=== PATIENT | female | born 1985 | race Caucasian/White ===

== ENCOUNTER 2017-03-30 06:13 | Emergency (ER) | END 2017-03-30 09:23 | disposition home or self-care (01) ==

== ENCOUNTER 2018-04-11 09:15 | Outpatient (CLI) | payer MEDICAID ==
[~2018-04-11] VITALS: Ht 165.1 cm; Wt 112.3 kg
[~2018-04-11 09:15] MED LIST: CALC600T24 PO; FER325 PO; PREN-93 PO
[2018-04-11 09:30] VITALS: Ht 165.1 cm; Wt 112.3 kg
[2018-04-11 09:31] VITALS: BP 110/68; PULSE 94
--- NOTE | 2018-04-11 11:31 | TRIAGE ---
OB Triage Datetime Report Generated by CPN: 04/11/2018 11:31 Datetime: 04/11/2018 11:04 Stage of : OB Triage Datetime: 04/11/2018 10:43 Stage of : OB Triage Datetime: 04/11/2018 10:38 Stage of : OB Triage Datetime: 04/11/2018 10:28 Labor Evaluation Frequency: x1 Monitor Mode: External Duration (sec)2399: 50 Pattern: Normal: <= 5 Contractions in 10 Minutes Resting Tone [place]: Relaxed Heart Rate FHR Baseline Rate: 130 Monitor Mode: External US Variability: Moderate 6-25 bpm Accelerations: 10X10 Decelerations: None Category: Category I Pain Assessment Pain Scale: 0 Pain Presence: None/Denies Pain Type: N/A Pain Goal: 3 Pain Relief Measures: Comfort Measures Datetime: 04/11/2018 09:40 Stage of : OB Triage Datetime: 04/11/2018 09:29 Labor Evaluation Frequency: x1 Monitor Mode: External Duration (sec)2399: 50 Pattern: Normal: <= 5 Contractions in 10 Minutes Resting Tone [place]: Relaxed Heart Rate FHR Baseline Rate: 145 Monitor Mode: External US Variability: Moderate 6-25 bpm Accelerations: 10X10 Decelerations: None Category: Category I Pain Assessment Pain Scale: 0 Pain Presence: None/Denies Pain Type: N/A Pain Goal: 3 Pain Relief Measures: Comfort Measures Datetime: 04/11/2018 09:27 Stage of : OB Triage Assessment Type: Triage Maternal Assessment Level of Consciousness: Fully Conscious DTR's/Clonus: DTRs 2+; No Clonus Headache: Denies Blurred Vision: No Respiratory Effort: Unlabored; Regular Rhythm; Equal Expansion Breath Sounds, Left: Clear and Equal Breath Sounds, Right: Clear and Equal Nausea/Vomiting: Denies RUQ Epigastric Pain: Denies Facial Edema: None Temperature Route: Axillary Fall Risk Assessment History of Falling: (0) No Secondary Diagnosis: (0) No Ambulatory Aid: (0) Bedrest/Nurse Assist IV Therapy: (0) No Gait: (0) Normal/Bedrest/Immobile Mental Status: (0) Oriented to Own Ability Fall Score: 0 Fall Risk Score Definition: No Risk: No action required Labor Evaluation Frequency: 0 Monitor Mode: External Pattern: Normal: <= 5 Contractions in 10 Minutes Resting Tone [place]: Relaxed Heart Rate FHR Baseline Rate: APPLIED Monitor Mode: External US Pain Assessment Pain Scale: 0 Pain Presence: None/Denies Pain Type: N/A Pain Goal: 3 Pain Relief Measures: Comfort Measures Datetime: 04/11/2018 09:26 Time of Arrival: 04/11/2018 09:15 EGA: 38.1 Arrived By: Ambulatory Arrived From: Home Chief Complaint: INSTRUCTED BY OFFICE TO RETURN TODAY AND CHECK SIZE/DATES, DENIES LEAKING, BLEEDI NG OR UC'S Movement: Present Contractions: Denies/Absent Rupture of Membranes: Denies Vaginal Bleeding: None Vaginal Discharge: Denies Recent Sexual Intercouse: Denies Abdominal Trauma: Not Applicable Patient Complaints: None Time Provider Notified: 04/11/2018 09:40 Provider Notified: hadadian Initial Plan: MONITOR, VE, BPP, EFW Datetime: 04/04/2018 11:21 Stage of : OB Triage Maternal Assessment Level of Consciousness: Fully Conscious Labor Evaluation Frequency: NONE Monitor Mode: External Resting Tone [place]: Relaxed Heart Rate FHR Baseline Rate: 135 Monitor Mode: External US Variability: Moderate 6-25 bpm Accelerations: 15X15 Decelerations: None Category: Category I Pain Assessment Pain Scale: 0 Pain Goal: 3 Vaginal Exam Membrane Status: Intact Vaginal Bleeding: None Datetime: 04/04/2018 10:47 Monitor Mode: External Monitor Mode: External US Datetime: 04/04/2018 10:39 Assessment Type: Triage Maternal Assessment Level of Consciousness: Fully Conscious DTR's/Clonus: DTRs 2+; No Clonus Headache: Denies Blurred Vision: No Respiratory Effort: Unlabored; Regular Rhythm; Equal Expansion Breath Sounds, Left: Clear and Equal Breath Sounds, Right: Clear and Equal Nausea/Vomiting: Denies RUQ Epigastric Pain: Denies Lower Extremities Edema: None Degree: None Upper Extremities Edema: None Degree: None Facial Edema: None Fall Risk Assessment History of Falling: (0) No Secondary Diagnosis: (0) No Ambulatory Aid: (0) Bedrest/Nurse Assist IV Therapy: (0) No Gait: (0) Normal/Bedrest/Immobile Mental Status: (0) Oriented to Own Ability Fall Score: 0 Fall Risk Score Definition: No Risk: No action required Datetime: 04/04/2018 10:38 Time of Arrival: 04/04/2018 10:11 EGA: 37.1 Arrived By: Ambulatory Chief Complaint: PT. HERE FOR NST/NANDA FOR OBESITY Movement: Present Contractions: Denies/Absent Rupture of Membranes: Denies Vaginal Bleeding: None Vaginal Discharge: Denies Recent Sexual Intercouse: Denies Abdominal Trauma: Not Applicable Patient Complaints: None Time Provider Notified: 04/04/2018 11:00 Provider Notified: HADADIAN Initial Plan: NST/BPP Datetime: 03/28/2018 14:16 Fall Score: 0 Fall Risk Score Definition: No Risk: No action required Datetime: 03/28/2018 14:15 EGA: 36.1
--- NOTE | 2018-04-11 15:38 | PN ---
Triage Information Date/Time Reason for visit: Sent from clinic for antepartum testing Weeks of Gestation 38 1/7 wks /Para Hypertention: none Objective Vital Signs Date Temp Pulse Resp B/P (MAP) Pulse Ox O2 O2 Flow FiO2 Time Delivery Rate 04/11/18 97.9 94 110/68 09:31 (82) Heart Rate: 140's Contractions: >10 Minutes Apart Disposition: Discharge Assessment/Plan 24 years old 3 para 2001 at 38 weeks and 1 daily sent from clinic for antepartum testing on the ultrasound for EFW.She states good movement. She denies nausea, vomiting, shortness of breath, chest pain, headache, visual changes, vaginal bleeding or LOF. - FHR: No sign of metabolic acidosis- Category I - She has occasional uterine contractions - SVE: close/thick/high/cephalic -Ultrasound performed, NANDA 10.8. EFW 3730 g. Biophysical profile 8 out of 8 - Symptoms and sign of labor, preeclampsia, kick count discussed with patient, she voiced understanding. All of her questions answered. - Patient was discharged home in stable condition with the appropriate discharge instructions provided. I would like patient to have close follow-up with her primary physician or outpatient clinic in 1-2 days or return to triage for worsening symptoms or any other urgent concerns. LUIS FALCON Apr 11, 2018 15:37
== END 2018-04-11 11:20 | disposition home or self-care (01) ==
LOC: OBT 09:15 → L-D 09:15 → OBT 11:20
PROVIDERS: ATTEND Obstetrics & Gynecology
DX: O62.9 Abnormality of forces of labor, unspecified (principal); Z3A.38 38 weeks gestation of pregnancy
CPT/HCPCS: 76815; 76818; Z7500; G0463

== ENCOUNTER 2018-04-26 01:39 | Inpatient (IN) | payer MEDICAID ==
[~2018-04-26] VITALS: Ht 165.1 cm; Wt 113.4 kg
[2018-04-26] MEDS ORDERED: LACTATED RINGER'S 1,000 ML IV SCH (01:57)
[2018-04-26 01:59] VITALS: BP 130/79; PULSE 75; RESP 18; Ht 165.1 cm; Wt 113.4 kg
[2018-04-26] MEDS ORDERED: CARBOPROST 250 MCG INJ IM PRN ×2 (02:00→09:00)
[2018-04-26] MEDS ORDERED: LIDOCAINE 1% (MPF) 30 ML INJ INJ PRN (02:00)
[2018-04-26] MEDS ORDERED: BUTORPHANOL 2 MG INJ IV PRN (02:00)
[2018-04-26] MEDS ORDERED: MISOPROSTOL 200 MCG TAB PR PRN ×2 (02:00→09:00)
[2018-04-26] MEDS ORDERED: METHYLERGONOVINE 0.2 MG INJ IM PRN (02:00)
[2018-04-26] MEDS ORDERED: OXYTOCIN 30 UNITS/LR 500 ML IV SCH ×3 (02:00→08:51)
[2018-04-26] MEDS ORDERED: IBUPROFEN 600 MG TAB PO PRN (02:00)
[2018-04-26] MEDS ORDERED: OXYTOCIN 30 UNITS/LR 500 ML IV PRN ×2 (02:00→09:00)
--- NOTE | 2018-04-26 02:03 | TRIAGE ---
OB Triage Datetime Report Generated by CPN: 04/26/2018 02:03 Datetime: 04/26/2018 02:02 Assessment Type: Admission Assessment Vaginal Bleeding: None Maternal Assessment Level of Consciousness: Fully Conscious DTR's/Clonus: DTRs 2+; No Clonus Headache: Denies Blurred Vision: No Respiratory Effort: Unlabored; Regular Rhythm; Equal Expansion Breath Sounds, Left: Clear and Equal Breath Sounds, Right: Clear and Equal Nausea/Vomiting: Denies RUQ Epigastric Pain: Denies Facial Edema: None Fall Risk Assessment History of Falling: (0) No Secondary Diagnosis: (0) No Ambulatory Aid: (0) Bedrest/Nurse Assist Gait: (0) Normal/Bedrest/Immobile Mental Status: (0) Oriented to Own Ability Datetime: 04/26/2018 02:01 Time of Arrival: 04/26/2018 01:35 EGA: 40.2 Arrived By: Stretcher Arrived From: Home Chief Complaint: UC's since 2299 Movement: Present Contractions: Regular Time Contractions Began: 04/25/2018 23:00 Contractions: Every 4 min Rupture of Membranes: Unsure Vaginal Bleeding: None Vaginal Discharge: Denies Recent Sexual Intercouse: Denies Abdominal Trauma: Not Applicable Patient Complaints: Contractions Additional Patient Complaints: Leaking x2 episodes Time Provider Notified: 04/26/2018 01:50 Provider Notified: Dr. Posadas Initial Plan: CEFM, VE Datetime: 04/26/2018 01:49 Stage of : OB Triage Assessment Type: Triage Maternal Assessment Level of Consciousness: Fully Conscious DTR's/Clonus: DTRs 2+; No Clonus Headache: Denies Blurred Vision: No Respiratory Effort: Unlabored; Regular Rhythm; Equal Expansion Breath Sounds, Left: Clear and Equal Breath Sounds, Right: Clear and Equal Nausea/Vomiting: Denies RUQ Epigastric Pain: Denies Facial Edema: None Temperature Route: Oral Fall Risk Assessment History of Falling: (0) No Secondary Diagnosis: (0) No Ambulatory Aid: (0) Bedrest/Nurse Assist IV Therapy: (0) No Gait: (0) Normal/Bedrest/Immobile Mental Status: (0) Oriented to Own Ability Fall Score: 0 Fall Risk Score Definition: No Risk: No action required Pain Assessment Pain Scale: 10 Pain Presence: Intermittent Pain Type: Cramping Pain Location: Abdomen Datetime: 04/11/2018 09:27 Fall Score: 0 Fall Risk Score Definition: No Risk: No action required Datetime: 04/11/2018 09:26 EGA: 38.1 Datetime: 04/04/2018 10:39 Fall Score: 0 Fall Risk Score Definition: No Risk: No action required Datetime: 04/04/2018 10:38 EGA: 37.1 Datetime: 03/28/2018 14:16 Fall Score: 0 Fall Risk Score Definition: No Risk: No action required Datetime: 03/28/2018 14:15 EGA: 36.1
[2018-04-26] MEDS ORDERED: FENTAnyl 2MCG/ML-ROPIV 0.2% 100 ML ONE (02:14)
[2018-04-26] MEDS ORDERED: CEFAZOLIN 2 GM/50 ML (PMX) 50 ML IVPB ONE ×2 (02:16→02:23)
--- NOTE | 2018-04-26 02:46 | PREAC ---
Date/Time of Note Date/Time of Note DATE: 04/26/18 TIME: 02:44 Anesthesia Eval and Record Evaluation Time Pre-Procedure Interview DATE: 04/26/18 TIME: 02:44 Age 32 Sex female NPO: 8 hrs Preoperative diagnosis IUP Planned procedure L&D Epidural Past Medical History Past Medical History: Includes GI: Morbid obesity Surgery & Anesthesia Issues No known issue Meds Anticoagulation: No Beta Josseline within 24 hr: No Reason Beta Josseline not given: Pt. not on B-Josseline Reported Medications Ferrous Sulfate* (Ferrous Sulfate*) 325 Mg Tabec, 325 MG PO DAILY, TAB 04/04/18 Calcium Carbonate* (Calcium Carbonate*) 600 MG Ca Tab, 600 MG PO DAILY, TAB 04/04/18 Vit No.124/Iron/FA ( Vitamin Tablet) 1 Each Tablet, 1 EACH PO DAILY, TAB 04/04/18 Current Medications Lactated Ringer's 1,000 ml @ 125 mls/hr Q8H IV Last administered on 04/26/18at 02:12; Admin Dose 125 MLS/HR; Start 04/26/18 at 01:57 Butorphanol Tartrate (Stadol) 2 mg Q2H PRN IV .PAIN; Start 04/26/18 at 02:00 Lidocaine (Xylocaine 1% (Mpf)) 30 ml ONCE PRN INJ .EPISIOTOMY; Start 04/26/18 at 02:00 Oxytocin/Lactated Ringer's 500 ml @ 500 mls/hr ONCE POST IV ; Start 04/26/18 at 02:00 Oxytocin/Lactated Ringer's 500 ml @ 125 mls/hr POST IV ; Start 04/26/18 at 02:00 Ibuprofen (Motrin) 600 mg ONCE PRN PO .PAIN 1-5; Start 04/26/18 at 02:00 Oxytocin/Lactated Ringer's 500 ml @ 0 mls/hr ONCE PRN IV .VAGINAL BLEEDING; Start 04/26/18 at 02:00 Methylergonovine Maleate (Methergine) 0.2 mg ONCE PRN IM .VAGINAL BLEEDING; Start 04/26/18 at 02:00 Carboprost Tromethamine (Hemabate) 250 mcg ONCE PRN IM .VAGINAL BLEEDING; Start 04/26/18 at 02:00 Misoprostol (Cytotec) 1,000 mcg ONCE PRN MA .VAGINAL BLEEDING; Start 04/26/18 at 02:00 Cefazolin Sodium/ Dextrose 50 ml @ 100 mls/hr ONCE ONCE IVPB Last administered on 04/26/18at 02:25; Admin Dose 100 MLS/HR; Start 04/26/18 at 02:16; Stop 04/26/18 at 02:45 Meds reviewed: Yes Allergies Coded Allergies: Latex, Natural Rubber (Verified Allergy, Intermediate, RASH, 04/04/18) amoxicillin (Verified Allergy, Unknown, 04/26/18) Allergies Reviewed: Yes Labs/Studies Labs Reviewed: Reviewed by anesthesiologist test: Positive Studies: ECG Pre-procedure Exam Last vitals Vital Signs Date Temp Pulse Resp B/P (MAP) Pulse Ox O2 O2 Flow FiO2 Time Delivery Rate 04/26/18 98.2 75 18 130/79 Room Air 01:59 (96) Airway: Adequate mouth opening, Adequate thyromental dist Mallampati: Mallampati II Teeth: Normal Lung: Normal Heart: Normal ASA Physical Status ASA physical status: 2 Emergency: None Planned Anesthetic Neuraxial: Epidural Planned Pain Management Epidural, Parenteral pain med Pre-operative Attestations Prior to commencing anesthesia and surgery, the patient was re-evaluated, there was verification of: *The patient's identity *The results of appropriate recent lab work and preoperative vital signs *The above evaluation not changing prior to induction *Anesthetic plan, risk benefits, alternative and complications discussed with patient/family; questions answered; patient/family understands, accepts and wishes to proceed. KARL FERNANDES MD Apr 26, 2018 02:46
--- NOTE | 2018-04-26 02:58 | HP ---
Date/Time of Note Date/Time of Note DATE: 04/26/18 TIME: 02:51 OB - History Hx of Present Free Text/Dictation 04/26/2018 Chief Complaint: labor pain and contractions Estimated Due Date: Apr 24, 2018 : 3 Para: 2 Spontaneous : 0 Therapeutic : 0 Other Concerns: 32 years old female with IUP at 40 weeks and 2 days presented with complaint of contractions and was noted to be in labor. Denies any leaking of fluid. Noted to be 9 cm/ 80/-1 . ROM at home at 23: 30 4 hours prior to come in. GBS postive No complications in her prental course. Reports alergy to amoxicillin, Rash. No sensitivity for GBS reported Past Family/Social History * Past Medical, Surgical, Family and Obstetric Histories reviewed from chart. Blood Type: B+ Rubella: immune RPR/VDRL: Negative GBS Status: Positive HBsAG: Negative OB Admission Exam Vital Signs Vital Signs Vital Signs Date Temp Pulse Resp B/P (MAP) Pulse Ox O2 O2 Flow FiO2 Time Delivery Rate 04/26/18 98.2 75 18 130/79 Room Air 01:59 (96) Physical Exam HEENT: WNL Lungs: Clear Abdomen: WNL Cervical Dilatation: 9cm Effacement: 100% Station: -1 Heart Rate: 140's Accelerations: No Accelerations Varibility: Moderate Contractions on Admission: < 5 Minutes Apart Intensity: Firm Last 72 hours Lab Results OB Assessment/Plan Other Assessment: IUP at 40 weeks and 2 days Active labor GBS positive Allergy to Amoxicillin, no sensitivity to clindamycin Consider Ancef 2 gram IV amnd then 1 gram every 8 hours. Slow infusion at start. Wach for any reaction. Denies any anaphylactic reaction to Amoxicillin, Anticipate Desires Epidural for pain control KALPESH KWON MD Apr 26, 2018 02:58
[2018-04-26] MEDS ORDERED: ONDANSETRON 4 MG INJ IV PRN ×2 (03:00→09:00)
[2018-04-26] MEDS ORDERED: NALOXONE (0.4 MG/ML) INJ IV PRN (03:00)
[2018-04-26] MEDS ORDERED: FENTAnyl 2MCG/ML-ROPIV 0.2% 100 ML BAG EPI SCH (03:00)
[2018-04-26] MEDS ORDERED: DIPHENHYDRAMINE 50 MG INJ IV PRN (03:00)
--- NOTE | 2018-04-26 08:50 | LDN ---
Date/Time of Note Date/Time of Note DATE: 04/26/18 TIME: 08:48 Delivery Summary April 26, 2018 Weeks of Gestation 40 weeks plus Placenta Delivered: Spontaneously Meconium: none Episiotomy: No Indication for episiotomy N;/A Perineal laceration: 0 Laceration repair: No laceration noted Anesthesia type: Epidural Estimated blood loss: 100 Sponge & Needle done & correct: Yes All needle counts correct: Yes Any foreign bodies felt in the: No Delivery Information Sex Infant Sex: female Apgars 1 Minute: 8 5 Minute: 9 Suctioning Nose & mouth suctioned at carl: Yes Delee suction performed: Yes Umbilical Cord Umbilical cord with: 3 Vessels Cord presentations: no nuchal cord Cord Blood was obtained: Yes Mother & Baby Disposition Disposition No perineal laceration noted. Baby's weight 8 pound 15 ounce. 100 cc EBL. Fundus was firm at the end of the delivery. No complication. KALPESH KWON MD Apr 26, 2018 08:50
[2018-04-26] MEDS ORDERED: HYDROCODONE/APAP (5/325) TAB PO PRN (09:00)
[2018-04-26] MEDS ORDERED: LANOLIN HPA 1 PKT TOP PRN (09:00)
[2018-04-26] MEDS ORDERED: DIPHENHYDRAMINE 25 MG CAP PO PRN (09:00)
[2018-04-26] MEDS ORDERED: WITCH HAZEL/GLYCERIN PAD PR PRN (09:00)
[2018-04-26] MEDS ORDERED: ZOLPIDEM 5 MG TAB PO PRN (09:00)
[2018-04-26] MEDS ORDERED: NACL 0.9% 3 ML SYG IV SCH (09:00)
[2018-04-26] MEDS: IBUPROFEN 600 MG TAB PO SCH ×3 (12:00→17:11)
[2018-04-26 15:00] VITALS: BP 105/59; PULSE 65; RESP 18
[2018-04-26] MEDS: SENNA/DOCUSATE NA (8.6MG/50MG) TAB PO SCH ×2 (16:22→22:38)
[2018-04-26] MEDS: FERROUS SULFATE (EC) 325 MG TAB PO SCH (16:23)
[2018-04-26 16:47] VITALS: BP 108/70; PULSE 62; RESP 18
[2018-04-26 20:00] VITALS: BP 101/60; PULSE 72; RESP 18
[2018-04-27 04:12] VITALS: BP_SYST 101; BP_SYST 110; BP_DIAS 60; BP_DIAS 62; PULSE 70; PULSE 72; RESP 18
[2018-04-27] MEDS: IBUPROFEN 600 MG TAB PO SCH ×5 (05:55→23:46)
[2018-04-27 08:40] VITALS: BP 100/54; PULSE 79; RESP 18
[2018-04-27] MEDS: FERROUS SULFATE (EC) 325 MG TAB PO SCH (10:00)
[2018-04-27] MEDS: SENNA/DOCUSATE NA (8.6MG/50MG) TAB PO SCH ×2 (10:00→21:00)
--- NOTE | 2018-04-27 11:31 | QN ---
Documentation Comment no c/o had BM fundus firm calf neg for tenderness lochia min A stable S/P P d/s home in am ADD baby might need photo therapy CARLINE FERMIN MD Apr 27, 2018 11:31
--- NOTE | 2018-04-27 12:59 | PAC ---
Date/Time of Note Date/Time of Note DATE: 04/27/18 TIME: 12:59 Post-Anesthesia Notes Post-Anesthesia Note Last documented vital signs Vital Signs Date Temp Pulse Resp B/P (MAP) Pulse Ox O2 O2 Flow FiO2 Time Delivery Rate 04/27/18 98.3 79 18 100/54 Room Air 08:40 (69) Activity: WNL Respiratory function: WNL Cardiovascular function: WNL Mental status: Baseline Pain reasonably controlled: Yes Hydration appropriate: Yes Nausea/Vomiting absent: Yes Comments BP:122/56, P:78, spo2:100%, T:98,8 KARL FERNANDES MD Apr 27, 2018 12:59
[2018-04-27 15:55] VITALS: BP 100/71; PULSE 72; RESP 18
[2018-04-27 19:50] VITALS: BP 111/67; PULSE 72; RESP 19
[2018-04-28 04:00] VITALS: BP 114/59; PULSE 63; RESP 19
[2018-04-28] MEDS: IBUPROFEN 600 MG TAB PO SCH (05:41)
[2018-04-28 07:45] VITALS: BP 115/79; PULSE 71; RESP 16
--- NOTE | 2018-04-28 08:43 | DS ---
Date/Time of Note Date/Time of Note DATE: 04/28/18 TIME: 08:41 Obstetrical Discharge Record Final Diagnosis Final Diagnosis: Term delivered Other Final Diagnosis 32 years old female s/p normal vaginal delivery at 40 weeks and 2 days. day#2. She is ambulating and tolerating regular diet. She is voiding without difficulty. She had bowel movement. Pain is controlled on current medication. She is doing breast-feeding. She is bonding well with . Contraceptive option with risk benefits alternatives discussed in detail with patient. She discharged home in stable condition with follow-up in 2 and 6 weeks. Vaginal Delivery Obstetrical Delivery: Spontaneous Condition on Discharge Physical Assessment Last Vitals: Vital Signs Date Temp Pulse Resp B/P (MAP) Pulse Ox O2 O2 Flow FiO2 Time Delivery Rate 04/28/18 98.4 63 19 114/59 Room Air 04:00 (77) Voiding: Yes Bowel Movement: Yes Breast: Soft, non-tender Fundus: Firm Calf Tenderness: No Patient Condition: Stable LUIS FALCON Apr 28, 2018 08:43
[2018-04-28] MEDS ORDERED: VARICELLA VACCINE LIVE/PF 1,350 UNIT/0.5 ML ML SC* ONE (09:00)
[2018-04-28] MEDS ORDERED: MEASLES,MUMPS,RUBELLA VACCINE INJ SC* ONE (09:00)
[2018-04-28] MEDS: FERROUS SULFATE (EC) 325 MG TAB PO SCH (09:47)
[2018-04-28] MEDS: SENNA/DOCUSATE NA (8.6MG/50MG) TAB PO SCH (09:47)
== END 2018-04-28 12:10 | disposition home or self-care (01) | DRG 807 ==
LOC: L-D 01:39 → OBT 01:39 → L-D 01:50 → OBT 01:50 → PP1 14:50
PROVIDERS: ADMIT Obstetrics & Gynecology; ATTEND Obstetrics & Gynecology
PROC: 10E0XZZ Delivery of Products of Conception, External Approach (ICD-10-PCS; principal; 2018-04-26)
DX: O99.214 Obesity complicating childbirth (principal); O99.824 Streptococcus B carrier state complicating childbirth; E66.01 Morbid (severe) obesity due to excess calories; Z37.0 Single live birth; Z3A.40 40 weeks gestation of pregnancy
CPT/HCPCS: 62319; 85025; 85610; 85730; 86592; 86850; 86900; 86901; 87340; 90716; G0463; J0690; J2590; J3010; J7120

== ENCOUNTER 2018-04-30 15:14 | Emergency (ER) | payer MEDICAID ==
[~2018-04-30] VITALS: Ht 172.7 cm; Wt 109.0 kg
[~2018-04-30 15:14] MED LIST changes: -CALC600T24 PO
[2018-04-30 15:42] VITALS: BP 144/84; PULSE 79; RESP 20; Ht 172.7 cm; Wt 109.0 kg
--- NOTE | 2018-04-30 20:12 | ERD ---
ER Documentation Chief Complaint Chief Complaint Complains of a cough x 3 days HPI 32-year-old female patient with no significant past medical history presents to ED complaining of having the fear of sleeping due to a choking sensation. Reports that she just delivered her baby, vaginally 5 days ago. Denies having any complications. No current vaginal bleeding. States that she feels like she is going to drown if she sleeps. Denies being depressed. Denies any suicidal or homicidal ideations. Denies any thoughts about hurting or killing her baby. Denies any nausea, vomiting, chest pain, shortness of breath, fever. ROS All systems reviewed and are negative except as per history of present illness. Medications Home Meds Reported Medications Ferrous Sulfate* (Ferrous Sulfate*) 325 Mg Tabec, 325 MG PO DAILY, TAB 04/04/18 Vit No.124/Iron/FA ( Vitamin Tablet) 1 Each Tablet, 1 EACH PO DAILY, TAB 04/04/18 Allergies Allergies: Coded Allergies: Latex, Natural Rubber (Verified Allergy, Intermediate, RASH, 04/04/18) amoxicillin (Verified Allergy, Unknown, 04/26/18) PMhx/Soc History of Surgery: No Anesthesia Reaction: No Hx Neurological Disorder: No Hx Respiratory Disorders: No Hx Cardiac Disorders: No Hx Psychiatric Problems: No Hx Miscellaneous Medical Probl: No Hx Alcohol Use: No Hx Substance Use: No Hx Tobacco Use: No FmHx Family History: No diabetes, No coronary disease Physical Exam Vitals Vital Signs Date Temp Pulse Resp B/P (MAP) Pulse Ox O2 O2 Flow FiO2 Time Delivery Rate 04/30/18 98.8 79 20 144/84 99 15:42 (104) Physical Exam Const: [id number], well-nourished. In no acute distress. Head: Atraumatic, normocephalic Eyes: Normal Conjunctiva without injection. No purulent discharge. PERRL. EOMI ENT: Normal external ear. Ear canal without erythema. Tympanic membrane pearly narvaez without effusion or bulging. Nasal canal clear with normal turbinates. Moist oropharynx without tonsillar exudates. Non-erythematous pharynx. Uvula midline. No drooling. No trismus. Neck: Full range of motion. No meningismus. No cervical lymphadenopathy. Resp: Clear to auscultation bilaterally. No wheezing, rhonchi, rales, or crackles. No accessory muscle use. No retractions. Cardio: Regular rate and rhythm. No murmurs, rubs or gallops. Abd: Soft, non tender, non distended. Normal bowel sounds. No palpable masses. No rebound tenderness. No guarding. Skin: No petechiae or rashes Back: No midline tenderness. No CVA tenderness. Ext: No cyanosis, or edema. Neur: Awake and alert. Psych: Normal Mood and Affect Procedures/MDM 32-year-old female patient with no significant past medical history presents to ED complaining of a choking sensation when she is lying down, having a fear of sleeping. Patient is afebrile and nontoxic-appearing. Discussed with my supervising physician, Dr. Ac, we both agreed with the management discharge plan. Patient should follow-up with her primary care physician or OB/vascular surgery physician for further management and treatment since patient is breast feeding, I did not feel comfortable with prescribing anti-anxiety medications at this time. Low suspicion for acute myocardial infarction, pneumothorax, pericarditis, myocarditis, endocarditis, pneumonia, cardiac tamponade, pulmonary embolism, pleural effusion, AAA, aortic dissection, Boerhaave's syndrome, cardiac dysrhythmias,meningitis, intracranial bleed, seizure, stroke, TIA or other emergent conditions. Diagnosis: Anxiety Follow up with primary care physician in 1-2 days. Instructed patient to return to the ED sooner for any worsening symptoms. Patient's questions were answered. Patient is hemodynamically stable. Patient understood and agreed with discharge plan. Patient discharged stable. Disclaimer: Inadvertent spelling and grammatical errors are likely due to EHR/d ictation software use and do not reflect on the overall quality of patient care. Also, please note that the electronic time recorded on this note does not necessarily reflect the actual time of the patient encounter. Departure Diagnosis: Primary Impression: Anxiety Condition: Stable Patient Instructions: Your Body's Response to Anxiety, Anxiety Reaction Referrals: COMMUNITY CLINICS YOU HAVE RECEIVED A MEDICAL SCREENING EXAM AND THE RESULTS INDICATE THAT YOU DO NOT HAVE A CONDITION THAT REQUIRES URGENT TREATMENT IN THE EMERGENCY DEPARTMENT. FURTHER EVALUATION AND TREATMENT OF YOUR CONDITION CAN WAIT UNTIL YOU ARE SEEN IN YOUR DOCTORS OFFICE WITHIN THE NEXT 1-2 DAYS. IT IS YOUR RESPONSIBILITY TO MAKE AN APPOINTMENT FOR FOLOW-UP CARE. IF YOU HAVE A PRIMARY DOCTOR --you should call your primary doctor and schedule an appointment IF YOU DO NOT HAVE A PRIMARY DOCTOR YOU CAN CALL OUR PHYSICIAN REFERRAL HOTLINE AT IF YOU CAN NOT AFFORD TO SEE A PHYSICIAN YOU CAN CHOSE FROM THE FOLLOWING [facility] [address] [facility] [address] [facility] [address] [facility] [address] [facility] [address] [facility]. [facility] [address] [facility]. [facility] YOU HAVE RECEIVED A MEDICAL SCREENING EXAM AND THE RESULTS INDICATE THAT YOU DO NOT HAVE A CONDITION THAT REQUIRES URGENT TREATMENT IN THE EMERGENCY DEPARTMENT. FURTHER EVALUATION AND TREATMENT OF YOUR CONDITION CAN WAIT UNTIL YOU ARE SEEN IN YOUR DOCTORS OFFICE WITHIN THE NEXT 1-2 DAYS. IT IS YOUR RESPONSIBILITY TO MAKE AN APPOINTMENT FOR FOLOW-UP CARE. IF YOU HAVE A PRIMARY DOCTOR --you should call your primary doctor and schedule and appointment IF YOU DO NOT HAVE A PRIMARY DOCTOR YOU CAN CALL OUR PHYSICIAN REFERRAL HOTLINE AT . IF YOU CAN NOT AFFORD TO SEE A PHYSICIAN YOU CAN CHOSE FROM THE FOLLOWING [facility] INSTITUTIONS: [facility] [address] [place] [address] [facility] [address] [place] [address] [facility] [address] [place] [address] [facility] Additional Instructions: Llame al doctor MAANA y tesfaye gurmeet CHAN PARA DENTRO DE 2-3 REBOLLEDO para la a dministracin de medicamentos debido a las restricciones de lactancia.Dgale a la secretaria que nosotros le instruimos hacer esta chan.Avise o llame si gaona condicin se empeora antes de la chan. Regresa aqui si peor o no mejor. JOAQUIM PEDRAZA PA-C Apr 30, 2018 20:12
--- NOTE | 2018-04-30 20:30 | QN ---
Documentation Comment Per ED staff report, pt eloped prior to being seen for psychiatry consult. Denied SI, thoughts of harming others before leaving the ED. CHRIS RICH MD Apr 30, 2018 20:30
== END 2018-04-30 20:30 | disposition left against medical advice (07) ==
LOC: FTE 15:14
DX: O99.345 Other mental disorders complicating the puerperium (principal); F41.9 Anxiety disorder, unspecified; Z91.040 Latex allergy status
CPT/HCPCS: 99282